=== PATIENT | female | born 1945 | race Two or more races ===

== ENCOUNTER 2020-03-18 11:00 | Inpatient (IN) | payer OTHER ==
[~2020-03-18] VITALS: Ht 157.5 cm; Wt 49.9 kg
[2020-03-19] MEDS ORDERED: PANTOPRAZOLE SO40 MG PO (14:23)
[2020-03-19] MEDS ORDERED: RESTORIL30 MG PO (14:24)
[2020-03-19] MEDS ORDERED: DICY20TA PO (14:24)
[2020-03-19] MEDS ORDERED: MESALAMINE800 MG PO (14:25)
[2020-03-19] MEDS ORDERED: VASOFLEX TABLE1 EACH PO (14:25)
[2020-03-19] MEDS ORDERED: CIPRO500 MG PO (14:25)
[2020-03-24] MEDS ORDERED: DELZICOL400 M1 PO (11:13)
[2020-03-28] MEDS ORDERED: OXYC1TAB9 PO (08:31)
[2020-03-28] MEDS ORDERED: PANTOPRAZOLE SO40 MG PO (08:31)
[2020-03-28] MEDS ORDERED: HYOSCYAMINE0.125 M1 SL (08:31)
[2020-03-28] MEDS ORDERED: INTESTINEX680 M1 PO (08:32)
== END 2020-03-28 12:41 | disposition home or self-care (01) | DRG 331 ==
LOC: O/R 03-24 07:50 → SURH 03-24 10:45
PROVIDERS: ADMIT Surgery; ATTEND Surgery
PROC: 0DTN4ZZ Resection of Sigmoid Colon, Percutaneous Endoscopic Approach (ICD-10-PCS; principal; 2020-03-24 10:45)
DX: C19 Malignant neoplasm of rectosigmoid junction (principal); K57.30 Diverticulosis of large intestine without perforation or abscess without bleeding; M79.7 Fibromyalgia; D64.89 Other specified anemias; E78.1 Pure hyperglyceridemia; F32.9 Major depressive disorder, single episode, unspecified; R73.01 Impaired fasting glucose; K63.89 Other specified diseases of intestine

== ENCOUNTER 2020-04-29 13:40 | Inpatient (IN) | payer OTHER ==
[~2020-04-29] VITALS: Ht 30.5 cm; Wt 5.0 kg
[~2020-04-29 13:40] MED LIST: CIPRO500 MG PO; DELZICOL400 M1 PO; DICY20TA PO; HYOSCYAMINE0.125 M1 SL; INTESTINEX680 M1 PO; MESALAMINE800 MG PO; OXYC1TAB9 PO; PANTOPRAZOLE SO40 MG PO; RESTORIL30 MG PO; VASOFLEX TABLE1 EACH PO
[2020-04-29] MEDS ORDERED: [UNRECOGNIZED DRUG - OTHER] PO (14:47)
[2020-04-29] MEDS ORDERED: ABATINEX680 MG PO (14:47)
[2020-04-29] MEDS ORDERED: PEPCID AC20 MG PO (14:48)
[2020-04-29] MEDS ORDERED: RESTORIL15 M1 PO (14:48)
[2020-04-29] MEDS ORDERED: ZOLOFT25 MG PO (14:49)
[2020-04-29] MEDS ORDERED: PEPTO-BISM262 MG/15 PO (14:49)
[2020-04-29] MEDS ORDERED: SIMVASTATIN5 MG PO (14:50)
[2020-04-29] MEDS ORDERED: FENOFIBRIC ACI105 MG PO (14:50)
== END 2020-05-01 15:37 | disposition home or self-care (01) | DRG 436 ==
LOC: ER 13:40 → SEC-K 20:33 → SURH 20:33 → SEC-K 23:30 → MEDJ 04-30 13:18 → SURH 04-30 13:48
PROVIDERS: ADMIT Internal Medicine Geriatric Medicine; ATTEND Internal Medicine Geriatric Medicine
DX: C78.7 Secondary malignant neoplasm of liver and intrahepatic bile duct (principal); C20 Malignant neoplasm of rectum; C78.00 Secondary malignant neoplasm of unspecified lung; N17.8 Other acute kidney failure; R63.0 Anorexia; M79.7 Fibromyalgia; D64.9 Anemia, unspecified; E78.00 Pure hypercholesterolemia, unspecified; F32.9 Major depressive disorder, single episode, unspecified; R73.01 Impaired fasting glucose; K63.89 Other specified diseases of intestine; R10.9 Unspecified abdominal pain